=== PATIENT | male | born 1965 | race Caucasian/White ===

== ENCOUNTER 2024-07-30 06:22 | Emergency (ER) | payer BC, SELFPAY ==
[2024-07-30] VITALS (7 sets, daily range): BP systolic 115–167; BP diastolic 78–92; BMI 35.5
--- NOTE | 2024-07-30 07:10 | EDRN ---
Dr. Elder in to see pt.
--- NOTE | 2024-07-30 07:12 | ED.GENMED ---
History of Present Illness
General
Chief Complaint: Musculo-Skeletal Complaint
Source: patient
Exam Limitations: none
Time Seen by Provider: 07/30/24 06:56
Nursing documentation reviewed up to this point in time: agreed with
History of Present Illness
History of Present Illness:
59-year-old male presents emergency department complaining of left upper leg pain since Thursday. Improved some on . It hurts when he lifts it or moves it.
Past History
Past History
ED Past Medical History: NIDDM
ED Past Surgical History: Appendectomy and Other (Right inguinal hernia repair)
Social History
Tobacco: Non-smoker
Alcohol: Occasional
Drug: None
Personal:
Living: with family
Employment: Not employed
Family History
Family History: CAD and Cancer
Review of Systems
Review of Systems
Allergies reviewed?: Yes
All Other Systems: Not applicable
Constitutional: Reports no symptoms
EENT: Reports no symptoms
Respiratory: Reports no symptoms
Cardiac: Reports no symptoms
ABD/GI: Reports no symptoms
: Reports no symptoms
Musculoskeletal: Reports muscle pain
Skin: Reports no symptoms
Neurological: Reports no symptoms
Endocrine: Reports no symptoms
Hematologic/Lymphatic: Reports no symptoms
Psychiatric: Reports no symptoms
Phy Exam
Physical Exam
Physical Exam:
Physical Exam
General: no apparent distress, not acutely ill
Neck: supple. no meningeal signs. normal posterior pharynx
Heart: equal radial pulses, equal dorsalis pedis pulses
HEENT: Pupils equal round reactive to light, EOMI
Lungs: no acute respiratory distress.
Abdomen: normal bowel sounds. not tender. no CVAT
: No testicular tenderness, normal testicular lie, no inguinal hernia palpated
Neuro: alert and oriented. no focal neurological deficits cranial nerves II through XII intact
Skin: no rash
Psychiatric: well kept. interactive and cooperative
Extremities: no edema. no calf tenderness. negative homans. good distal pulses, mild tenderness at the medial upper thigh
Course
Orders/Labs/Results
Orders:
Orders
07/30/24 07:11
Hip, Left 2-3 Views [CR Hip - LT w/wo Pel 2-3 Vw*] Urgent
Comment:
Reason For Exam: left groin pain
Include a pelvis x-ray?: Yes
07/30/24 07:12
US Periph Venous LOWER Ext LT Urgent
Comment:
Reason For Exam: left groin pain
07/30/24 09:10
IV Insert/Care/Rem.- Treatment PRN
07/30/24 09:28
Complete Blood Count/With Diff Urgent
Comprehensive Metabolic Panel Urgent
Abnormal Lab Results
07/30/24
09:28
Absolute Neuts (auto) 6.9 H 10^3/uL
(1.4-6.5)
Lymphocytes % 17.5 L %
(20.5-51.1)
Glucose 196 H mg/dl
(70-99)
07/30/24 09:28
07/30/24 09:28
Vital Signs
Initial and Last Documented VS:
Initial Vital Signs
Temp Pulse Resp BP Pulse Ox
98.6 F 87 20 167/92 96
07/30/24 06:26 07/30/24 06:26 07/30/24 06:26 07/30/24 06:26 07/30/24 06:26
Last Documented Vital Signs
Temp Pulse Resp BP Pulse Ox
98.6 F 88 16 126/80 96
07/30/24 06:28 07/30/24 09:00 07/30/24 09:00 07/30/24 09:00 07/30/24 09:00
MDM/Problems Addressed
Differential Diagnosis Includes:
Groin strain, inguinal hernia, DVT
MDM/Problems Addressed:
59-year-old male with left groin lymphadenopathy, likely reactive lymph node. Will treat with short course of antibiotics. Patient to follow-up with primary care. Return precautions given.
Chronic conditions affecting care: Previous abdomnial surgery (Right inguinal hernia repair)
*Radiology
Radiology exam reviewed: radiology read reviewed (Left hip x-ray shows mild degenerative changes, ultrasound left lower extremity shows prominent lymph node left groin, no DVT)
*Pulse Oximetry
Patient hypoxic: no
*Critical Care Note
Total Time (30-74mins, 75-104mins- exclusive of procedures): Not Applicable
Data Reviewed
Further Testing Considered But Not Given:
CT not indicated
Patient Management
Social determinants of health affecting care: Living situation and Strong social support
Escalation/DeEscalation of care consider admission/obs:
Admit not indicated
ED Attending Note
-
Portions of this chart may have been created with voice recognition software.� Occasional wrong word or��sound alike� substitutions may have occurred due to the inherent limitations of voice recognition software.
Discharge Plan
Departure
Patient Disposition: Home (Routine Discharge)
Date of Disposition: 07/30/24
Time of Disposition: 11:04
Patient with high blood pressure during this ER visit?: Yes
Condition: Good
Discharge Problem:
Lymphadenopathy
Instructions: Swollen lymph nodes in adults, BLOOD PRESSURE
Prescriptions:
New
sulfamethoxazole-trimethoprim [Bactrim DS] 800-160 mg tablet
1 tab PO BID 7 Days Qty: 14 0RF
Referrals:
Michael Longo MD [Family Provider] - Call in 1-3 days for appt
Interventions
Interventions:
*Risk Screen - Suicide Last Done: 07/30/24 06:28
*General Assessment Last Done: 07/30/24 06:28
*Neglect/Abuse Screening Last Done: 03/29/25 06:28
*ED- Fall Risk Assessment Last Done: 07/30/24 06:28
*ED COVID-19 Vaccine History Last Done: 07/30/24 06:28
ED-Musculoskeletal Assessment Last Done: 07/30/24 07:20
Discharge Date and Time
Print Language: [id number]
--- NOTE | 2024-07-30 07:22 | EDRN ---
Pt states pain started Wed , felt better and yesterday worse during day then late PM nad evening worse then very painful during the night. Pain is a constant 2/10 but w/ movement pain 7-8/10 when moves or bares weight. Pt could not lie
on L side. Pt is tender in L groin. Pain radiates down L inner thigh to almost to knee w/ movement and wt baring. Unable to lift leg even slightly. Unable to lift even for sl steps. Difficulty dressing foot w/ socks and shoes.
[2024-07-30 09:52] LABS: % Basophils 0.5 % (0-2); % Eosinophils 2.9 % (0-6); % Immature Granulocytes 0.4 % (0-0.5); % Lymphocytes 17.5 % (20.5-51.1); % Monocytes 5.1 % (1.7-9.3); % Neutrophils 73.6 % (42.2-75.2); Absolute Basophils 0.1 10^3/uL (0-0.2); Absolute Eosinophils 0.3 10^3/uL (0-0.7); Absolute Lymphocytes 1.7 10^3/uL (1.2-3.4); Absolute Monocytes 0.5 10^3/uL (0.1-0.6); Absolute Neutrophils 6.9 10^3/uL (1.4-6.5); Hematocrit 40.2 % (39.0-52.0); Hemoglobin 13.8 g/dL (13.0-18.0); Mean Corp Hgb Conc. 34.3 g/dL (33.0-37.0); Mean Corpuscular Hgb 28.8 pg (27.0-31.0); Mean Corpuscular Volume 83.8 fL (80.0-94.0); Mean Platelet Volume 8.9 fL (7.4-10.4); Nucleated Red Blood Cells % 0 % (-); Platelet Count 207 10^3/uL (130-400); Red Cell Dist. Width 13.4 % (11.5-14.5); White Blood Cell Count 9.4 10^3/uL (4.8-10.8)
[2024-07-30 10:01] LABS: ALT (SGPT) 32 U/L (0-50); AST (SGOT) 27 U/L (17-59); Albumin 4.2 g/dl (3.5-5.0); Alkaline Phosphatase 81 U/L (38-126); Blood Urea Nitrogen 16 mg/dl (9-20); Calcium 9.2 mg/dl (8.4-10.2); Carbon Dioxide 24 mmol/L (22-30); Chloride 104 mmol/L (98-107); Estimated Creatinine Clearance 124 ml/min; Glucose 196 mg/dl (70-99); Potassium 4.9 mmol/L (3.5-5.1); Sodium 138 mmol/L (135-145); Total Bilirubin 0.6 mg/dl (0.2-1.3); Total Protein 7.1 g/dl (6.3-8.2); eGFR > 60.00
--- NOTE | 2024-07-30 11:21 | EDRN ---
Dr. Elder in to see pt at this time.
== END 2024-07-30 11:29 | disposition home or self-care (01) ==
LOC: EMR 06:22
PROVIDERS: EMERGENCY PHYSICIAN Emergency Medicine; FAMILY PHYSICIAN Family Medicine
DX: R59.0 Localized enlarged lymph nodes (principal); E11.9 Type 2 diabetes mellitus without complications; Z90.49 Acquired absence of other specified parts of digestive tract
CPT/HCPCS: 99284; 73502; 80053; 85025; 93971